=== PATIENT | male | born 2000 | race Caucasian/White ===

== ENCOUNTER 2022-03-20 19:16 | Emergency (ER) | payer SELFPAY ==
--- NOTE | 2022-03-20 19:28 | NUR ---
CALLED IN FOR TRIAGE FROM LOBBY AND OUTSIDE, NO ANSWER.
--- NOTE | 2022-03-20 19:42 | NUR ---
CALLED IN FOR TRIAGE FROM LOBBY AND OUTSIDE, NO ANSWER.
--- NOTE | 2022-03-20 19:55 | NUR ---
CALLED IN FOR TRIAGE FROM LOBBY AND OUTSIDE, NO ANSWER.
== END 2022-03-20 20:04 | disposition left against medical advice (07) ==
LOC: MED 19:16
DX: M79.643 Pain in unspecified hand (principal); Z53.21 Procedure and treatment not carried out due to patient leaving prior to being seen by health care provider